=== PATIENT | female | born 1955 | race Caucasian/White ===

== ENCOUNTER → 2023-11-11 07:43 | Outpatient (REF) | payer OTHER, SELFPAY | LOC: RAD 07:43 | PROVIDERS: ATTENDING PHYSICIAN Internal Medicine Critical Care Medicine; FAMILY PHYSICIAN Student in an Organized Health Care Education/Training Program | DX: R93.89 Abnormal findings on diagnostic imaging of other specified body structures (principal); J18.9 Pneumonia, unspecified organism; R05.9 Cough, unspecified; R07.89 Other chest pain; Z87.01 Personal history of pneumonia (recurrent) | CPT/HCPCS: 71250 ==

== ENCOUNTER → 2024-01-01 07:35 | Outpatient (REF) | payer OTHER, SELFPAY ==
[2024-01-01 09:45] LABS: TSH Reflex To Free T4 3.61 uIU/ml (0.47-4.68)
[2024-01-01 10:31] LABS: Total Cholesterol 238 mg/dl (50-199); Triglyceride 82 mg/dl (10-149); Very Low Density Lipoprotein 16 mg/dl (0-30)
[2024-01-01 10:44] LABS: HDL Cholesterol 152 mg/dl; LDL Cholesterol, Calculated 70 mg/dl
[2024-01-02 15:52] LABS: Rheumatoid Agglutinin Less Than 10 IU (<10 IU)
[2024-01-02 18:41] LABS: ANA, IgG Reflex to HEp-2 Detected (None Detected)
[2024-01-02 21:30] LABS: CCP Antibody IgG/IgA 7 Units (0-19)
[2024-01-03 00:02] LABS: Centromere Antibody 2 AU/mL (0-40); Jo-1 Antibodies 1 AU/mL (0-40); SSA 52 (Ro)(ENA) Ab, IgG 3 AU/mL (0-40); SSA 60 (Ro)(ENA) Ab, IgG 105 AU/mL (0-40); SSB (La)(ENA) Ab, IgG 4 AU/mL (0-40); Scleroderma Antibody (Scl-70) 1 AU/mL (0-40)
[2024-01-03 17:27] LABS: ANA, HEp-2, IgG Detected (<1:80)
[2024-01-05 19:11] LABS: Aspergillus Abs by ID Not Detected (Not Detected)
[2024-01-06 04:33] LABS: Aspergillus fumigatus #1 Ab None Detected (None Detected); Aureobasidium pullulans Ab None Detected (None Detected); Micropolyspora faeni Ab None Detected (None Detected); Pigeon Serum Ab None Detected (None Detected)
[2024-01-07 10:37] LABS: ANA Pattern Homogeneous
== END ==
LOC: REG 07:35
PROVIDERS: ATTENDING PHYSICIAN Internal Medicine Critical Care Medicine; FAMILY PHYSICIAN Student in an Organized Health Care Education/Training Program
DX: R06.02 Shortness of breath (principal); I25.83 Coronary atherosclerosis due to lipid rich plaque; E03.9 Hypothyroidism, unspecified
CPT/HCPCS: 36415; 80061; 83516; 84443; 86038; 86039; 86200; 86235; 86331; 86430; 86606

== ENCOUNTER → 2024-03-05 11:32 | Outpatient (REF) | payer OTHER, SELFPAY | LOC: WDC 11:32 | PROVIDERS: ATTENDING PHYSICIAN Student in an Organized Health Care Education/Training Program | DX: Z12.31 Encounter for screening mammogram for malignant neoplasm of breast (principal); M85.80 Other specified disorders of bone density and structure, unspecified site | CPT/HCPCS: 77063; 77067; 77080 ==

== ENCOUNTER → 2024-05-06 15:37 | Outpatient (REF) | payer OTHER, SELFPAY | LOC: RAD 15:37 | PROVIDERS: ATTENDING PHYSICIAN Internal Medicine Critical Care Medicine; FAMILY PHYSICIAN Student in an Organized Health Care Education/Training Program | DX: R93.89 Abnormal findings on diagnostic imaging of other specified body structures (principal); R06.02 Shortness of breath; Z87.01 Personal history of pneumonia (recurrent) | CPT/HCPCS: 71250 ==

== ENCOUNTER → 2024-05-22 09:12 | Outpatient (REF) | payer OTHER, SELFPAY ==
[2024-05-22 10:37] LABS: ALT (SGPT) 18 U/L (0-35); AST (SGOT) 34 U/L (14-36); Albumin 4.7 g/dl (3.5-5.0); Alkaline Phosphatase 94 U/L (38-126); Blood Urea Nitrogen 8 mg/dl (7-17); Carbon Dioxide 31 mmol/L (22-30); Chloride 98 mmol/L (98-107); Glucose 90 mg/dl (70-99); Potassium 4.5 mmol/L (3.5-5.1); Sodium 139 mmol/L (135-145); Total Bilirubin 0.9 mg/dl (0.2-1.3); Total Cholesterol 198 mg/dl (50-199); Total Protein 7.2 g/dl (6.3-8.2); Triglyceride 69 mg/dl (10-149); Very Low Density Lipoprotein 13 mg/dl (0-30); eGFR > 60.00
[2024-05-22 10:49] LABS: HDL Cholesterol 129 mg/dl; LDL Cholesterol, Calculated 56 mg/dl
== END ==
LOC: REG 09:12
PROVIDERS: ATTENDING PHYSICIAN Student in an Organized Health Care Education/Training Program
DX: I25.10 Atherosclerotic heart disease of native coronary artery without angina pectoris (principal)
CPT/HCPCS: 36415; 80053; 80061

== ENCOUNTER → 2024-07-08 13:03 | Outpatient (REF) | payer OTHER, SELFPAY | LOC: RAD 13:03 | PROVIDERS: ATTENDING PHYSICIAN Physician Assistant Medical; FAMILY PHYSICIAN Student in an Organized Health Care Education/Training Program | DX: R51.9 Headache, unspecified (principal) | CPT/HCPCS: 70450 ==

== ENCOUNTER → 2024-09-09 10:47 | Outpatient (REF) | payer OTHER, SELFPAY ==
[2024-09-09 11:48] LABS: ALT (SGPT) 16 U/L (0-35); AST (SGOT) 30 U/L (14-36); Total Cholesterol 211 mg/dl (50-199); Triglyceride 52 mg/dl (10-149); Very Low Density Lipoprotein 10 mg/dl (0-30)
[2024-09-09 12:09] LABS: HDL Cholesterol 140 mg/dl; LDL Cholesterol, Calculated 61 mg/dl
== END ==
LOC: REG 10:47
PROVIDERS: ATTENDING PHYSICIAN Student in an Organized Health Care Education/Training Program
DX: E78.5 Hyperlipidemia, unspecified (principal)
CPT/HCPCS: 36415; 80061; 84450; 84460

== ENCOUNTER → 2024-11-12 08:15 | Outpatient (REF) | payer OTHER, SELFPAY ==
[2024-11-12 10:15] LABS: Urine Albumin 1+ (Neg - Trace); Urine Bilirubin Negative (Negative); Urine Character Clear (Clear); Urine Color Yellow; Urine Glucose Negative (Negative); Urine Ketone Negative (Negative); Urine Leukocyte 1+ (Negative); Urine Nitrite Negative (Negative); Urine Occult Blood Negative (Negative); Urine Specific Gravity 1.015 (<1.030); Urine Urobilinogen Negative (Neg - 1+)
[2024-11-12 10:31] LABS: Complement C3 109 mg/dl (88-165)
[2024-11-12 10:58] LABS: Urine Bacteria Few (Negative); Urine Mucus Few; Urine Red Blood Cell 0-2 /HPF (0-2); Urine Squamous Cell 0-2 /LPF (Few)
[2024-11-14 02:34] LABS: ds-DNA Ab, IgG Reflex To Titer 6 IU (0-24)
[2024-11-14 16:04] LABS: Smith/RNP (ENA), IgG 4 Units (0-19)
== END ==
LOC: REG 08:15
PROVIDERS: ATTENDING PHYSICIAN Dermatology; FAMILY PHYSICIAN Student in an Organized Health Care Education/Training Program
DX: L93.0 Discoid lupus erythematosus (principal)
CPT/HCPCS: 36415; 81003; 81015; 86160; 86225; 86235

== ENCOUNTER → 2025-01-05 09:56 | Outpatient (REF) | payer OTHER, SELFPAY ==
[2025-01-05 11:11] LABS: % Basophils 0.8 % (0-2); % Eosinophils 1.8 % (0-6); % Immature Granulocytes 0.3 % (0-0.5); % Lymphocytes 21.9 % (20.5-51.1); % Monocytes 8.6 % (1.7-9.3); % Neutrophils 66.6 % (42.2-75.2); Absolute Eosinophils 0.1 10^3/uL (0-0.7); Absolute Lymphocytes 0.8 10^3/uL (1.2-3.4); Absolute Monocytes 0.3 10^3/uL (0.1-0.6); Absolute Neutrophils 2.6 10^3/uL (1.4-6.5); Hematocrit 39.7 % (37.0-47.0); Hemoglobin 13.2 g/dL (12.0-16.0); Mean Corp Hgb Conc. 33.2 g/dL (33.0-37.0); Mean Corpuscular Hgb 31.7 pg (27.0-31.0); Mean Corpuscular Volume 95.2 fL (81.0-99.0); Mean Platelet Volume 10.1 fL (7.4-10.4); Nucleated Red Blood Cells % 0 %; Platelet Count 208 10^3/uL (130-400); Red Blood Cell Count 4.17 10^6/uL (4.20-5.40); Red Cell Dist. Width 12.8 % (11.5-14.5); White Blood Cell Count 3.8 10^3/uL (4.8-10.8)
[2025-01-05 12:04] LABS: ALT (SGPT) 19 U/L (0-35); AST (SGOT) 27 U/L (14-36); Albumin 4.7 g/dl (3.5-5.0); Alkaline Phosphatase 93 U/L (38-126); Blood Urea Nitrogen 11 mg/dl (7-17); Calcium 9.8 mg/dl (8.4-10.2); Carbon Dioxide 28 mmol/L (22-30); Chloride 103 mmol/L (98-107); Direct Bilirubin 0.3 mg/dl (0.0-0.4); Glucose 85 mg/dl (70-99); Potassium 4.3 mmol/L (3.5-5.1); Sodium 138 mmol/L (135-145); Total Bilirubin 1.1 mg/dl (0.2-1.3); Total Protein 6.9 g/dl (6.3-8.2); eGFR > 60.00
== END ==
LOC: REG 09:56
PROVIDERS: ATTENDING PHYSICIAN Dermatology; FAMILY PHYSICIAN Student in an Organized Health Care Education/Training Program
DX: L93.0 Discoid lupus erythematosus (principal)
CPT/HCPCS: 36415; 80053; 82248; 85025

== ENCOUNTER → 2025-01-28 10:35 | Outpatient (REF) | payer OTHER, SELFPAY ==
[2025-01-28 12:06] LABS: Protein/creatinine Ratio 0.2; Urine Protein 10 mg/dl
[2025-01-28 12:33] LABS: Complement C3 107 mg/dl (88-165)
[2025-01-28 12:46] LABS: TSH 1.29 uIU/ml (0.47-4.68)
[2025-01-28 13:22] LABS: Rheumatoid Agglutinin Less Than 10 IU (<10 IU)
== END ==
LOC: REG 10:35
PROVIDERS: ATTENDING PHYSICIAN Dermatology; FAMILY PHYSICIAN Student in an Organized Health Care Education/Training Program
DX: L93.2 Other local lupus erythematosus (principal)
CPT/HCPCS: 36415; 82570; 84156; 84443; 86038; 86160; 86200; 86225; 86235; 86430

== ENCOUNTER → 2025-02-03 08:34 | Outpatient (REF) | payer OTHER, SELFPAY | LOC: RAD 08:34 | PROVIDERS: FAMILY PHYSICIAN Student in an Organized Health Care Education/Training Program; REFERRING PHYSICIAN Internal Medicine Critical Care Medicine | DX: R93.89 Abnormal findings on diagnostic imaging of other specified body structures (principal) | CPT/HCPCS: 71250 ==

== ENCOUNTER → 2025-03-08 12:24 | Outpatient (REF) | payer OTHER, SELFPAY | LOC: WDC 12:24 | PROVIDERS: ATTENDING PHYSICIAN Obstetrics & Gynecology; FAMILY PHYSICIAN Student in an Organized Health Care Education/Training Program | DX: Z12.31 Encounter for screening mammogram for malignant neoplasm of breast (principal) | CPT/HCPCS: 77063; 77067 ==

== ENCOUNTER → 2025-06-07 13:07 | Outpatient (REF) | payer OTHER, SELFPAY ==
[2025-06-07 13:51] LABS: Hematocrit 38.8 % (37.0-47.0); Hemoglobin 12.9 g/dL (12.0-16.0); Mean Corp Hgb Conc. 33.2 g/dL (33.0-37.0); Mean Corpuscular Volume 97.0 fL (81.0-99.0); Nucleated Red Blood Cells % 0 %; Platelet Count 193 10^3/uL (130-400); Red Cell Dist. Width 13.5 % (11.5-14.5)
[2025-06-07 14:00] LABS: D-Dimer 0.66 ug/mlFEU (0.00-0.50)
[2025-06-07 16:05] LABS: Blood Urea Nitrogen 9 mg/dl (7-17)
== END ==
LOC: REG 13:07
PROVIDERS: ATTENDING PHYSICIAN Internal Medicine
DX: R07.81 Pleurodynia (principal)
CPT/HCPCS: 36415; 71046; 71275; 82565; 84520; 85025; 85379; Q9967

== ENCOUNTER → 2025-07-06 08:47 | Outpatient (REF) | payer OTHER, SELFPAY ==
[2025-07-06 12:15] LABS: Hepatitis B Surface Antigen Negative (Negative)
[2025-07-06 12:33] LABS: Hepatitis C Antibody Negative (Negative)
== END ==
LOC: REG 08:47
PROVIDERS: ATTENDING PHYSICIAN Dermatology; FAMILY PHYSICIAN Student in an Organized Health Care Education/Training Program
DX: Z51.81 Encounter for therapeutic drug level monitoring (principal)
CPT/HCPCS: 36415; 86480; 86705; 86706; 86803; 87340; 87389

== ENCOUNTER → 2025-07-16 12:48 | Outpatient (REF) | payer OTHER, SELFPAY ==
[2025-07-16 13:53] LABS: Urine Character Clear (Clear)
[2025-07-16 14:15] LABS: Urine Urothelial Cell 26-30 /LPF (FEW)
[2025-07-16 14:16] LABS: Urine Red Blood Cell 0-2 /HPF (0-2); Urine White Cell 26-30 /HPF (0-5)
[2025-07-16 14:20] LABS: Iron 125 ug/dl (37-170)
[2025-07-16 14:24] LABS: C-Reactive Protein < 5.00 mg/L (0.0-10.00)
[2025-07-16 14:31] LABS: Total Iron Binding Capacity 350 ug/dl (265-497)
[2025-07-16 14:41] LABS: Vitamin D, 25-OH*** 29.4 ng/mL (30-80)
[2025-07-16 14:55] LABS: TSH 3.33 uIU/ml (0.47-4.68)
[2025-07-16 14:59] LABS: Ferritin 64.4 ng/ml (11.1-264.0)
== END ==
LOC: REG 12:48
PROVIDERS: ATTENDING PHYSICIAN Internal Medicine; FAMILY PHYSICIAN Student in an Organized Health Care Education/Training Program; OTHER PHYSICIAN Dermatology
DX: M35.00 Sjogren syndrome, unspecified (principal); R53.83 Other fatigue
CPT/HCPCS: 36415; 81003; 81015; 82306; 82570; 82728; 83540; 83550; 84156; 84439; 84443; 85652; 86140; 86160; 86225

== ENCOUNTER → 2025-09-02 13:41 | Outpatient (REF) | payer OTHER, SELFPAY | LOC: RAD 13:41 | PROVIDERS: ATTENDING PHYSICIAN Student in an Organized Health Care Education/Training Program | DX: J18.9 Pneumonia, unspecified organism (principal) | CPT/HCPCS: 71250 ==